=== PATIENT | female | born 1995 | race Two or more races ===

== ENCOUNTER 2017-01-11 18:20 | Emergency (ER) | payer OTHER ==
[~2017-01-11] VITALS: Ht 149.9 cm; Wt 54.4 kg
[2017-01-11 19:02] VITALS: BP 119/78
[2017-01-11] MEDS ORDERED: AMOX1TAB61 PO (19:54)
--- NOTE | 2017-01-11 19:54 | PHYS DOC ---
Past Medical History Past Medical History: Anxiety Past Surgical History: Tonsillectomy Alcohol Use: Occasionally Drug Use: None Adult General Chief Complaint Chief Complaint: ANIMAL BITE HPI HPI Patient is a 21 year old female who presents with cat bite to the right thumb that happened prior to coming to the ED. Patient states the cat is up-to-date with its shots. Patient denies any fever. Patient is not up-to-date with her tetanus Review of Systems Review of Systems Constitutional: Denies fever or chills [] Musculoskeletal: Denies back pain or joint pain [] Integument: Cat bite to the right thumb Neurologic: Denies headache, focal weakness or sensory changes [] Endocrine: Denies polyuria or polydipsia [] Current Medications Current Medications Current Medications Medications (Trade) Dose Ordered Sig/Champ Start Time Stop Time Status Last Admin Dose Admin Diphtheria/ Tetanus/Acell Pertussis (Boostrix) 0.5 ml ONCE ONCE 01/11/17 20:00 01/11/17 20:01 Allergies Allergies Allergies Coded Allergies Type Severity Reaction Last Updated Verified No Known Drug Allergies 01/11/17 No Physical Exam Physical Exam Constitutional: Well developed, well nourished, no acute distress, non-toxic appearance. [] Skin: Right thumb PIP joint with tiny puncture wounds consistent with cat bites. No obvious tendon involvement. Full range of motion to the right thumb including flexion and extension. +2 right radial pulse. Adequate radial sensation to the right thumb. Cap refill less than 2 seconds the right thumb. Back: No tenderness, no CVA tenderness. [] Extremities: No tenderness, no cyanosis, no clubbing, ROM intact, no edema. [] Neurologic: Alert and oriented X 3, normal motor function, normal sensory function, no focal deficits noted. [] Psychologic: Affect normal, judgement normal, mood normal. [] Current Patient Data Vital Signs Vital Signs Date Time Temp Pulse Resp B/P (MAP) Pulse Ox O2 Delivery O2 Flow Rate FiO2 01/11/17 19:02 98.2 69 18 100 Room Air 98.2 EKG EKG [] Radiology/Procedures Radiology/Procedures [] Course & Med Decision Making Course & Med Decision Making Pertinent Labs and Imaging studies reviewed. (See chart for details) Patient has Bites to the right thumb that happened today. Tetanus was updated. Discharged with Augmentin. Provided return precautions and discharged in stable condition. Dragon Disclaimer Jaredon Disclaimer This electronic medical record was generated, in whole or in part, using a voice recognition dictation system. Departure Departure Impression: Primary Impression: Cat bite of right thumb Disposition: HOME, SELF-CARE Condition: STABLE Referrals: NO PCP (PCP) Follow-up with your doctor in 1-2 weeks Patient Instructions: Animal Bite, [id number] Additional Instructions: You were seen for cat bite to the right thumb. Keep the area clean and dry. Complete your antibiotics. You received a tetanus shot in the emergency room today. Monitor the area for any worsening condition and return to the ED. Follow -up with your doctor in 1-2 weeks. Scripts Amoxicillin/Potassium Clav (AUGMENTIN 875-125 TABLET) 1 Each Tablet 1 TAB PO BID, #20 TAB Prov: CHRISSY MONZON APRN 01/11/17 Problem Qualifiers Primary Impression: Cat bite of right thumb Encounter type: initial encounter Qualified Codes: S61.051A - Open bite of right thumb without damage to nail, initial encounter; W55.01XA - Bitten by cat , initial encounter CHRISSY MONZON APRN Jan 11, 2017 19:54
[2017-01-11] MEDS ORDERED: DIPHTH,PERTUSS(ACELL),TET TOX 0.5 ML DISP.SYRIN. VAX IM ONE (20:00)
--- NOTE | 2017-01-12 09:27 | RAD ---
[facility]-view right hand radiographs 01/11/2017 Clinical history: Cat bite to the right hand. PA, lateral and oblique digital radiographs of the right hand were obtained. No fracture or dislocation of the right hand is seen. No radiopaque foreign body is noted. Impression: No fracture or dislocation of the right hand is seen.
== END 2017-01-11 20:04 | disposition home or self-care (01) ==
LOC: ER 18:20
DX: S61.051A Open bite of right thumb without damage to nail, initial encounter (principal); F41.9 Anxiety disorder, unspecified; W55.01XA Bitten by cat, initial encounter; Y93.89 Activity, other specified; Y92.89 Other specified places as the place of occurrence of the external cause; Y99.8 Other external cause status
CPT/HCPCS: 73130; 90471; 90715; 99284-25

== ENCOUNTER 2021-06-08 08:10 | Emergency (ER) | payer MEDICAID, OTHER ==
[~2021-06-08] VITALS: Ht 157.5 cm; Wt 72.8 kg
[~2021-06-08 08:10] MED LIST: AMOX1TAB61 PO
[2021-06-08 08:50] VITALS: BP 115/69
--- NOTE | 2021-06-08 08:56 | PHYS DOC ---
Past Medical History Past Medical History: Anxiety Past Surgical History: Tonsillectomy Smoking Status: Never Smoker Alcohol Use: Occasionally Drug Use: None General Adult EDM: Chief Complaint: left arm pain HPI: HPI: Patient is a 26 year old female who present to ER for evaluation of left arm pain. Patient says she got her COVID vaccine booster yesterday, she woke up this morning with pain around the injection site, the pain radiates into her armpit area. Patient called her sister who is a nurse who told her to come to ER for evaluation because she worried that she might have a heart attack. Patient denies any chest pain, no cough, no fever, no trouble breathing. Review of Systems: Review of Systems: Constitutional: Denies fever or chills. [] Eyes: Denies change in visual acuity. [] HENT: Denies nasal congestion or sore throat. [] Respiratory: Denies cough or shortness of breath. [] Cardiovascular: Denies chest pain or edema. [] GI: Denies abdominal pain, nausea, vomiting, bloody stools or diarrhea. [] : Denies dysuria. [] Musculoskeletal: Denies back pain or joint pain. Positive for left arm pain. Integument: Denies rash. [] Neurologic: Denies headache, focal weakness or sensory changes. [] Endocrine: Denies polyuria or polydipsia. [] Lymphatic: Denies swollen glands. [] Psychiatric: Denies depression or anxiety. [] Heart Score: C/O Chest Pain: N/A Risk Factors: Risk Factors: DM, Current or recent (<one month) smoker, HTN, HLP, family history of CAD, obesity. Risk Scores: Score 0 - 3: 2.5% MACE over next 6 weeks - Discharge Home Score 4 - 6: 20.3% MACE over next 6 weeks - Admit for Clinical Observation Score 7 - 10: 72.7% MACE over next 6 weeks - Early Invasive Strategies Allergies: Allergies: Allergies Coded Allergies Type Severity Reaction Last Updated Verified No Known Drug Allergies 01/11/17 No Physical Exam: PE: Constitutional: Well developed, well nourished, no acute distress, non-toxic appearance. [] HENT: Normocephalic, atraumatic, bilateral external ears normal, oropharynx moist, no oral exudates, nose normal. [] Eyes: PERRLA, EOMI, conjunctiva normal, no discharge. [] Neck: Normal range of motion, no tenderness, supple, no stridor. [] Cardiovascular:Heart rate regular rhythm, no murmur [] Lungs & Thorax: Bilateral breath sounds clear to auscultation [] Abdomen: Bowel sounds normal, soft, no tenderness, no masses, no pulsatile masses. [] Skin: Warm, dry, no erythema, no rash. [] Back: No tenderness, no CVA tenderness. [] Extremities: No tenderness, no cyanosis, no clubbing, ROM intact, no edema. [] Neurologic: Alert and oriented X 3, normal motor function, normal sensory function, no focal deficits noted. [] Psychologic: Affect normal, judgement normal, mood normal. [] Current Patient Data: Labs: Laboratory Tests Test 06/08/21 08:42 POC Urine HCG, Qualitative Hcg negative (Negative) EKG: EKG: EKG was done at 837, heart rate 92 bpm, normal sinus rhythm, no ST segment elevation. Normal axis Radiology/Procedures: Radiology/Procedures: [] Course & Med Decision Making: Course & Med Decision Making Pertinent Labs and Imaging studies reviewed. (See chart for details) [] Dragon Disclaimer: Visitar Disclaimer: This electronic medical record was generated, in whole or in part, using a voice recognition dictation system. Departure Departure Impression: Primary Impression: Myalgia after COVID-19 vaccination Disposition: 01 HOME / SELF CARE / HOMELESS Condition: STABLE Referrals: NO PCP (PCP) Follow-up with your doctor as needed. Patient Instructions: Myalgia, Adult Additional Instructions: Thank you for visiting our Emergency Department. We appreciate you trusting us with your care. If any additional problems come up don't hesitate to return to visit us. Please follow up with your primary care provider so they can plan additional care if needed and know about the problem that you had. If symptoms worsen come back to the Emergency Department. Any concerning symptoms that start such as chest pain, shortness of air, weakness or numbness on one side of the body, running high fevers or any other concerning symptoms return to the ER. JUAN CHICAS DO Jun 08, 2021 08:56
--- NOTE | 2021-06-08 10:04 | EKG ---
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
== END 2021-06-08 09:07 | disposition home or self-care (01) ==
LOC: ER 08:10
DX: M79.10 Myalgia, unspecified site (principal); T50.B95A Adverse effect of other viral vaccines, initial encounter; Y84.8 Other medical procedures as the cause of abnormal reaction of the patient, or of later complication, without mention of misadventure at the time of the procedure; Y92.89 Other specified places as the place of occurrence of the external cause
CPT/HCPCS: 81025; 93005; 99283